=== PATIENT | female | born 1955 | race Caucasian/White ===

== ENCOUNTER 2021-11-15 12:57 | Outpatient (REF) | payer OTHER, SELFPAY ==
--- NOTE | ~2021-11-15 | XR_ITS ---
EXAMINATION: XR BILATERAL HAND AND BILATERAL FOOT CLINICAL INFORMATION: Rheumatoid arthritis flare with pain. COMPARISON: None. TECHNIQUE: 3 views each foot. 3 views each hand. FINDINGS: Left Foot: The ankle mortise and subtalar joints are normal. There is no visible acute fracture, dislocation or subluxation. There is small retrocalcaneal enthesophyte is seen. The soft tissues are normal. Right Foot: The ankle mortise and subtalar joints are normal. There is no visible acute fracture, dislocation or subluxation seen. No bony abnormality. The soft tissues are normal. Right Hand: There is mild loss of PIP and PIP joint space all digits with mild periarticular spurring DIP joint 2nd and 3rd digit. There is no visible acute fracture or dislocation seen. There is a small lucency along the triquetrum bone. The soft tissues are normal. Left Hand: There is mild loss of PIP and DIP joints of all digits with mild periarticular erosive changes DIP joints 2nd and 3rd digits. No acute fracture or dislocation seen the soft tissues are normal. XR/XR foot LT min 3V IMPRESSION: Unremarkable bilateral foot exam except for a small retrocalcaneal enthesophyte left foot. 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 No acute fracture, dislocation or deformity seen.
--- NOTE | ~2021-11-15 | XR_ITS ---
EXAMINATION: XR BILATERAL HAND AND BILATERAL FOOT CLINICAL INFORMATION: Rheumatoid arthritis flare with pain. COMPARISON: None. TECHNIQUE: 3 views each foot. 3 views each hand. FINDINGS: Left Foot: The ankle mortise and subtalar joints are normal. There is no visible acute fracture, dislocation or subluxation. There is small retrocalcaneal enthesophyte is seen. The soft tissues are normal. Right Foot: The ankle mortise and subtalar joints are normal. There is no visible acute fracture, dislocation or subluxation seen. No bony abnormality. The soft tissues are normal. Right Hand: There is mild loss of PIP and PIP joint space all digits with mild periarticular spurring DIP joint 2nd and 3rd digit. There is no visible acute fracture or dislocation seen. There is a small lucency along the triquetrum bone. The soft tissues are normal. Left Hand: There is mild loss of PIP and DIP joints of all digits with mild periarticular erosive changes DIP joints 2nd and 3rd digits. No acute fracture or dislocation seen the soft tissues are normal. XR/XR foot RT min 3V IMPRESSION: Unremarkable bilateral foot exam except for a small retrocalcaneal enthesophyte left foot. 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 No acute fracture, dislocation or deformity seen.
--- NOTE | ~2021-11-15 | XR_ITS ---
EXAMINATION: XR BILATERAL HAND AND BILATERAL FOOT CLINICAL INFORMATION: Rheumatoid arthritis flare with pain. COMPARISON: None. TECHNIQUE: 3 views each foot. 3 views each hand. FINDINGS: Left Foot: The ankle mortise and subtalar joints are normal. There is no visible acute fracture, dislocation or subluxation. There is small retrocalcaneal enthesophyte is seen. The soft tissues are normal. Right Foot: The ankle mortise and subtalar joints are normal. There is no visible acute fracture, dislocation or subluxation seen. No bony abnormality. The soft tissues are normal. Right Hand: There is mild loss of PIP and PIP joint space all digits with mild periarticular spurring DIP joint 2nd and 3rd digit. There is no visible acute fracture or dislocation seen. There is a small lucency along the triquetrum bone. The soft tissues are normal. Left Hand: There is mild loss of PIP and DIP joints of all digits with mild periarticular erosive changes DIP joints 2nd and 3rd digits. No acute fracture or dislocation seen the soft tissues are normal. XR/XR hand LT min 3V IMPRESSION: Unremarkable bilateral foot exam except for a small retrocalcaneal enthesophyte left foot. 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 No acute fracture, dislocation or deformity seen.
--- NOTE | ~2021-11-15 | XR_ITS ---
EXAMINATION: XR BILATERAL HAND AND BILATERAL FOOT CLINICAL INFORMATION: Rheumatoid arthritis flare with pain. COMPARISON: None. TECHNIQUE: 3 views each foot. 3 views each hand. FINDINGS: Left Foot: The ankle mortise and subtalar joints are normal. There is no visible acute fracture, dislocation or subluxation. There is small retrocalcaneal enthesophyte is seen. The soft tissues are normal. Right Foot: The ankle mortise and subtalar joints are normal. There is no visible acute fracture, dislocation or subluxation seen. No bony abnormality. The soft tissues are normal. Right Hand: There is mild loss of PIP and PIP joint space all digits with mild periarticular spurring DIP joint 2nd and 3rd digit. There is no visible acute fracture or dislocation seen. There is a small lucency along the triquetrum bone. The soft tissues are normal. Left Hand: There is mild loss of PIP and DIP joints of all digits with mild periarticular erosive changes DIP joints 2nd and 3rd digits. No acute fracture or dislocation seen the soft tissues are normal. XR/XR hand RT min 3V IMPRESSION: Unremarkable bilateral foot exam except for a small retrocalcaneal enthesophyte left foot. 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 No acute fracture, dislocation or deformity seen.
== END 2021-11-15 12:58 | disposition home or self-care (01) ==
LOC: HO.XRAY 12:57
PROVIDERS: PCP Hospitalist; Visit Provider Internal Medicine
DX: M06.9 Rheumatoid arthritis, unspecified (principal)
CPT/HCPCS: 73130; 73630

== ENCOUNTER 2021-11-27 09:07 | Outpatient (REF) | payer OTHER, SELFPAY ==
[2021-11-27 11:42] LABS: MANUAL DIFF FLAG NO
[2021-11-27 12:04] LABS: Basophils Percent Auto 0.6 % (0-2); Eosinophils Absolute Auto 0.1 X10*3/uL (0.0-0.4); Eosinophils Percent Auto 2.4 % (0-4); Hematocrit 40.8 % (37.0-47.0); Hemoglobin 13.8 g/dl (12.0-16.0); Imm Gran Abs Auto 0.02 X10*3/uL (0.00-0.03); Imm Gran Pct Auto 0.4 % (0.0-0.4); Lymphocytes Absolute Auto 1.1 X10*3/uL (1.2-4.9); Mean Corpuscular HGB Conc 33.8 g/dl (31.0-35.0); Mean Corpuscular Hemoglobin 32.3 pg (27.0-33.0); Mean Corpuscular Volume 95.6 fL (80.0-98.0); Mean Platelet Volume 10.2 fL (9.4-12.3); Monocytes Absolute Auto 0.4 X10*3/uL (0.1-1.2); Monocytes Percent Auto 6.8 % (2-11); Neutrophils Absolute Auto 3.7 x10*3/uL (2.0-8.3); Neutrophils Percent Auto 68.8 % (45-73); Platelet Count 212 X10*3/uL (160-400); Red Blood Count 4.27 X10*6/uL (4.20-5.50); Red Cell Distribution Width 12.8 % (11.0-16.0); White Blood Count 5.4 X10*3/uL (4.8-10.8)
[2021-11-27 12:36] LABS: Erythrocyte Sedimentation Rate 9 MM/HR (0-20)
[2021-11-27 13:14] LABS: Alanine Aminotransferase 29 U/L (0-31); Albumin Level 4.4 g/dL (3.5-5.0); Alkaline Phosphatase 82 U/L (39-117); Anion Gap 13 (12-20); Aspartate Amino Transferase 25 U/L (5-31); Bilirubin Total 0.4 mg/dL (0.0-1.0); Blood Urea Nitrogen 17 mg/dL (9-16); C Reactive Protein 0.63 mg/dL (< or = 0.50); Calcium 9.5 mg/dL (8.4-10.2); Carbon Dioxide 28 mmol/L (22-29); Chloride 106 mmol/L (96-108); Estimated Glomerular Filt Rate > 60; Glucose Fasting 99 mg/dL (60-99); Potassium 4.5 mmol/L (3.3-5.1); Rheumatoid Factor < 15.0 IU/mL (<15.0); Sodium 142 mmol/L (135-145); Total Protein 6.5 g/dL (6.5-8.0)
[2021-11-28 14:26] LABS: Anti DNA DS Antibody <1 IU/mL
[2021-11-29 10:56] LABS: TS Negative Control Passed; TS Panel A 0; TS Panel B 0; TS Positive Control Passed; TSpotTB Negative (Negative)
[2021-11-29 22:21] LABS: Cyclic Citrullinated Peptide <16 UNITS
[2021-11-30 15:06] LABS: Anti Nuclear Antibody Pattern Nuclear, Speckled; Anti Nuclear Antibody Screen POSITIVE (NEGATIVE)
== END 2021-11-27 09:08 | disposition home or self-care (01) ==
LOC: HO.WFDLDS 09:07
PROVIDERS: Visit Provider Internal Medicine Rheumatology
DX: Z11.1 Encounter for screening for respiratory tuberculosis (principal); Z79.899 Other long term (current) drug therapy
CPT/HCPCS: 36415; 80053; 85025; 85652; 86038; 86039; 86140; 86200; 86225; 86431; 86481

== ENCOUNTER 2021-12-24 09:44 | Outpatient (REF) | payer OTHER, SELFPAY ==
[2021-12-24 12:20] LABS: Cholesterol 236 mg/dL; HDL Cholesterol 67 mg/dL; LDL Cholesterol Calculated 135 mg/dl; Triglycerides 170 mg/dL
== END 2021-12-24 09:45 | disposition home or self-care (01) ==
LOC: HO.WFDLDS 09:44
PROVIDERS: Visit Provider Hospitalist
DX: Z00.00 Encounter for general adult medical examination without abnormal findings (principal)
CPT/HCPCS: 36415; 80061; 84443

== ENCOUNTER 2022-02-11 13:55 | Outpatient (REF) | payer OTHER, SELFPAY | END 2022-02-11 13:56 | disposition home or self-care (01) | LOC: HO.LNP 13:55 | PROVIDERS: Visit Provider Hospitalist | DX: Z20.822 Contact with and (suspected) exposure to COVID-19 (principal) | CPT/HCPCS: U0003; U0005 ==